=== PATIENT | female | born 1940 | race Caucasian/White ===

== ENCOUNTER 2019-01-09 20:48 | Inpatient (IN) | payer MEDICARE, MEDICAID ==
[2019-01-10 00:40] VITALS: BP 135/84
[2019-01-10] MEDS ORDERED: Magnesium Hydroxide (MOM) 30 mL UDC PO PRN (00:47)
[2019-01-10] MEDS: Enoxaparin 40 mg/0.4 mL 0.4mL Syr SUBQ SCH (09:50)
[2019-01-10] MEDS: Aspirin 81mg Chewable Tab PO SCH (09:51)
--- NOTE | 2019-01-10 19:12 | History & Physical ---
ADMIT DATE: 01/10/2019 HISTORY OF PRESENT ILLNESS: The patient was exhibiting some behavioral disturbance. She was sent to [facility] for medical clearance and was found to have urinary tract infection. She was kept there for further antibiotics and treatment and once cleared has now been sent for further psychiatric evaluation. The patient is sitting in a chair. She is drowsy, but able to move and reposition herself. The patient is a poor historian. History is taken from records. PAST MEDICAL HISTORY: The patient has history of dementia, arthritis and hypertension. The patient recently finished a course of antibiotics for urinary tract infection. The patient also had an elevation in troponin, was seen by Cardiology consult in the hospital for demand ischemia. MEDICATIONS: As per reconciliation. ALLERGIES: No known drug allergies. SOCIAL HISTORY: No known tobacco, alcohol or illicit drug use. FAMILY HISTORY: Noncontributory. REVIEW OF SYSTEMS: IMMUNOLOGIC: No recurrent infection. CARDIOVASCULAR: The patient has hypertension and possibly coronary artery disease. GASTROINTESTINAL: No nausea, vomiting or diarrhea. ENDOCRINE: No diabetes or thyroid disorder. NEUROLOGIC: No seizure or stroke. HEMATOLOGIC: No bleeding or clotting disorder. PHYSICAL EXAMINATION: GENERAL: The patient is resting comfortably in no acute distress. VITAL SIGNS: Temperature 98.2, pulse 87, respirations 18, blood pressure 132/54. HEENT: Pupils equally round, anicteric sclerae. NECK: Supple, no JVD, mass or bruit. LUNGS: Clear to auscultation. CARDIOVASCULAR: S1, S2 regular rate and rhythm. ABDOMEN: Soft, nontender, positive bowel sounds. EXTREMITIES: No clubbing, cyanosis or edema. ASSESSMENT: 1. Dementia. 2. Psychosis. 3. Hypertension. 4. Recent urinary tract infection. PLAN: Admit to a Psychiatric Unit. The patient will continue previous medications. We will monitor the patient's labs and urine for further evidence of infection. JOB# [id number]
[2019-01-10] MEDS ORDERED: Enoxaparin 40 mg/0.4 mL 0.4mL Syr SUBQ SCH (21:00)
--- NOTE | 2019-01-11 04:35 | Psychiatric Evaluation ---
DATE OF SERVICE: PSYCHIATRIC INITIAL EVALUATION AND MENTAL STATUS EXAMINATION AGE: 78. SEX: Female. PHYSICIAN: Dr. Bae. CHIEF COMPLAINT: Agitation and aggressive behavior. HISTORY OF PRESENT ILLNESS: The patient is an 78-year-old female who was transferred from [facility] to [facility] because of possible urinary tract infection and also increased agitation and irritability. The patient was medically treated and cleared and then the patient was transferred to [facility] for further treatment. The patient is extremely irritable and agitated. The patient has difficulty following directions. She also is still in irritable and angry mood. The patient also still has severe mood swings and severe confusion. The patient is taking Seroquel and also continuing to take Haldol and Klonopin and trazodone, yet she is still severely agitated and aggressive. PAST PSYCHIATRIC HISTORY: The patient has history of dementia with psychosis. PAST MEDICAL HISTORY: As per Dr. Caldwell. SOCIAL HISTORY: The patient lives in [facility]. No known alcohol or drug use. ALLERGIES: No known allergies. MENTAL STATUS EXAMINATION: The patient appears her stated age. Irritable mood. Anxious. Suspicious and paranoid. Thought processes are circumstantial and tangential with flight of ideas and difficulty expressing herself or her feelings. The patient is forgetful and impaired immediate, recent and remote memories. Poor insight and poor judgment. ASSESSMENT: Unspecified psychosis. TREATMENT PLAN: Continue to monitor her behavior and condition closely. Also, we will increase Seroquel to 37.5 every day at that time. Also, continue adjusting psychotropic medications and work on behavioral modification. ESTIMATED LENGTH OF STAY: 5-7 days. PATIENT'S STRENGTHS AND WEAKNESSES: The patient's strength is not clear at this time except that she seems to be in relatively fair health. Weaknesses are her ineffective coping and poor judgment and poor impulse control. [facility]# [id number]
[2019-01-11] MEDS: Aspirin 81mg Chewable Tab PO SCH (08:58)
[2019-01-11] MEDS: Enoxaparin 40 mg/0.4 mL 0.4mL Syr SUBQ SCH (08:59)
--- NOTE | 2019-01-11 15:31 | General Progress Note ---
Subjective - Review of Systems Service Date: 01/11/19 Subjective: resting comfortably no distress Objective - Physical Exam Vitals and I&O: Vital Signs Temp 97.7 F 01/11/19 14:56 Pulse 107 01/11/19 14:56 Resp 19 01/11/19 14:56 BP 134/96 01/11/19 14:56 Pulse Ox 95 01/11/19 14:56 Intake & Output 01/10/19 01/11/19 01/11/19 18:59 06:59 18:59 Intake Total 240 240 Balance 240 240 Intake: Oral 240 240 Other: # Voids 1 2 # Bowel Movements 0 0 Active Medications: Current Medications Acetaminophen (Tylenol) 650 mg PO Q4HR PRN PRN Reason: Mild Pain / Temp above 100 Stop: 03/11/19 00:46 Amlodipine Besylate (Norvasc) 10 mg PO DAILY [facility] Stop: 03/11/19 08:59 Last Admin: 01/11/19 08:58 Dose: 10 mg Aspirin (Aspirin Chewable) 81 mg PO DAILY [facility] Stop: 03/11/19 08:59 Last Admin: 01/11/19 08:58 Dose: 81 mg Clonazepam (Klonopin) 0.5 mg PO BID [facility]; Protocol Stop: 03/11/19 08:59 Last Admin: 01/11/19 08:59 Dose: 0.5 mg Clonazepam (Klonopin) 1 mg PO HS [facility]; Protocol Stop: 03/11/19 20:59 Last Admin: 01/10/19 20:30 Dose: 1 mg Diphenhydramine HCl (Benadryl) 25 mg PO Q6H PRN PRN Reason: itchy Stop: 03/11/19 02:22 Enoxaparin Sodium (Lovenox) 40 mg SUBQ DAILY [facility] Stop: 03/11/19 08:59 Last Admin: 01/11/19 08:59 Dose: 40 mg Haloperidol (Haldol) 5 mg PO BID [facility]; Protocol Stop: 03/11/19 08:59 Last Admin: 01/11/19 08:59 Dose: 5 mg Haloperidol (Haldol) 5 mg PO HS [facility]; Protocol Last Admin: 01/10/19 20:31 Dose: 5 mg Haloperidol (Haldol) 5 mg PO Q6H PRN; Protocol PRN Reason: Agitation Stop: 03/11/19 01:15 Lorazepam (Ativan) 0.5 mg PO Q6HR PRN; Protocol PRN Reason: Agitation Stop: 02/09/19 00:46 Magnesium Hydroxide (Milk Of Magnesia) 30 ml PO HS PRN PRN Reason: Constipation Quetiapine Fumarate (Seroquel) 37.5 mg PO HS [facility]; Protocol Stop: 03/11/19 20:59 Last Admin: 01/10/19 20:30 Dose: 37.5 mg Trazodone HCl (Desyrel) 50 mg PO HS [facility]; Protocol Stop: 03/11/19 20:59 Last Admin: 01/10/19 20:30 Dose: 50 mg General: Alert, No acute distress HEENT: Atraumatic, PERRLA Neck: Supple, JVD, Thyromegaly Cardiovascular: Regular rate, Normal S1, Normal S2 Lungs: Clear to auscultation Abdomen: Bowel sounds, Soft Assessment/Plan - Assessment Assessment: psychosis dementia HTN - Plan Plan: continue current treatment
--- NOTE | 2019-01-11 20:27 | Progress Notes ---
DATE: SUBJECTIVE: Chart was reviewed and the patient interviewed. Also discussed the patient's condition with the staff and reviewed records and labs. The patient continued to be in anxious and in irritable mood. The patient also is still having severe mood swings and severe anxiety. The patient also is restless and she still needs lots of tension and lots of concentration. Otherwise, the patient is compliant with taking her medications and slightly easier to redirect her. ASSESSMENT: The patient is still confused and is still agitated. TREATMENT PLAN: Continue to monitor her behavior and her condition closely. Also, continue adjusting psychotropic medications and work on behavioral modification and her irritability. JOB# [id number]
[2019-01-12] MEDS: Enoxaparin 40 mg/0.4 mL 0.4mL Syr SUBQ SCH (10:00)
[2019-01-12] MEDS: Aspirin 81mg Chewable Tab PO SCH (10:00)
--- NOTE | 2019-01-12 15:58 | General Progress Note ---
Subjective - Review of Systems Service Date: 01/12/19 Subjective: resting comfortably no distress Objective - Physical Exam Vitals and I&O: Vital Signs Temp 98 F 01/12/19 06:20 Pulse 94 01/12/19 10:00 Resp 20 01/12/19 06:20 BP 140/57 01/12/19 10:00 Pulse Ox 97 01/12/19 06:20 Intake & Output 01/11/19 01/12/19 01/12/19 18:59 06:59 18:59 Intake Total 850 360 Output Total 2 Balance 850 358 Intake: Oral 850 360 Output: Urine/Stool Mix 2 Other: # Voids 4 1 # Bowel Movements 2 1 Active Medications: Current Medications Acetaminophen (Tylenol) 650 mg PO Q4HR PRN PRN Reason: Mild Pain / Temp above 100 Stop: 03/11/19 00:46 Amlodipine Besylate (Norvasc) 10 mg PO DAILY [facility] Stop: 03/11/19 08:59 Last Admin: 01/12/19 10:00 Dose: 10 mg Aspirin (Aspirin Chewable) 81 mg PO DAILY [facility] Stop: 03/11/19 08:59 Last Admin: 01/12/19 10:00 Dose: 81 mg Clonazepam (Klonopin) 0.5 mg PO BID [facility]; Protocol Stop: 03/11/19 08:59 Last Admin: 01/12/19 10:00 Dose: 0.5 mg Clonazepam (Klonopin) 1 mg PO HS [facility]; Protocol Stop: 03/11/19 20:59 Last Admin: 01/11/19 21:10 Dose: 1 mg Diphenhydramine HCl (Benadryl) 25 mg PO Q6H PRN PRN Reason: itchy Stop: 03/11/19 02:22 Enoxaparin Sodium (Lovenox) 40 mg SUBQ DAILY [facility] Stop: 03/11/19 08:59 Last Admin: 01/12/19 10:00 Dose: 40 mg Haloperidol (Haldol) 5 mg PO BID [facility]; Protocol Stop: 03/11/19 08:59 Last Admin: 01/12/19 10:00 Dose: 5 mg Haloperidol (Haldol) 5 mg PO HS [facility]; Protocol Last Admin: 01/11/19 21:11 Dose: 5 mg Haloperidol (Haldol) 5 mg PO Q6H PRN; Protocol PRN Reason: Agitation Stop: 03/11/19 01:15 Lorazepam (Ativan) 0.5 mg PO Q6HR PRN; Protocol PRN Reason: Agitation Stop: 02/09/19 00:46 Magnesium Hydroxide (Milk Of Magnesia) 30 ml PO HS PRN PRN Reason: Constipation Quetiapine Fumarate (Seroquel) 37.5 mg PO HS [facility]; Protocol Stop: 03/11/19 20:59 Last Admin: 01/11/19 21:11 Dose: 37.5 mg Trazodone HCl (Desyrel) 50 mg PO HS [facility]; Protocol Stop: 03/11/19 20:59 Last Admin: 01/11/19 21:12 Dose: 50 mg General: Alert, No acute distress HEENT: Atraumatic, PERRLA Neck: Supple, JVD, Thyromegaly Cardiovascular: Regular rate, Normal S1, Normal S2 Lungs: Clear to auscultation Abdomen: Bowel sounds, Soft Assessment/Plan - Assessment Assessment: psychosis dementia HTN - Plan Plan: continue current treatment d/w staff regarding UA
[2019-01-13] MEDS: Enoxaparin 40 mg/0.4 mL 0.4mL Syr SUBQ SCH (09:36)
[2019-01-13] MEDS: Aspirin 81mg Chewable Tab PO SCH (09:36)
--- NOTE | 2019-01-13 18:03 | Internal Medicine Prog Note ---
Internal Medicine Subjective - Subjective Service Date: 01/13/19 Patient seen and examined:: with staff (she is doing well) Patient is:: awake, verbal, in bed, talking, confused Per staff patient has:: no adverse event Internal Medicine Objective - Physical Exam Vitals and I&O: Vital Signs Temp 96.4 F 01/13/19 14:50 Pulse 95 01/13/19 14:50 Resp 18 01/13/19 14:50 BP 140/59 01/13/19 14:50 Pulse Ox 93 01/13/19 14:50 Intake & Output 01/12/19 01/13/19 01/13/19 18:59 06:59 18:59 Intake Total 480 480 Output Total 1 Balance 480 479 Intake: Oral 360 480 Other 120 Output: Urine/Stool Mix 1 Other: # Voids 3 1 # Bowel Movements 1 0 Active Medications: Current Medications Acetaminophen (Tylenol) 650 mg PO Q4HR PRN PRN Reason: Mild Pain / Temp above 100 Stop: 03/11/19 00:46 Amlodipine Besylate (Norvasc) 10 mg PO DAILY [facility] Stop: 03/11/19 08:59 Last Admin: 01/13/19 09:36 Dose: Not Given Aspirin (Aspirin Chewable) 81 mg PO DAILY [facility] Stop: 03/11/19 08:59 Last Admin: 01/13/19 09:36 Dose: Not Given Clonazepam (Klonopin) 0.5 mg PO BID [facility]; Protocol Stop: 03/11/19 08:59 Last Admin: 01/13/19 17:46 Dose: Not Given Clonazepam (Klonopin) 1 mg PO HS [facility]; Protocol Stop: 03/11/19 20:59 Last Admin: 01/12/19 21:18 Dose: 1 mg Diphenhydramine HCl (Benadryl) 25 mg PO Q6H PRN PRN Reason: itchy Stop: 03/11/19 02:22 Enoxaparin Sodium (Lovenox) 40 mg SUBQ DAILY [facility] Stop: 03/11/19 08:59 Last Admin: 01/13/19 09:36 Dose: Not Given Haloperidol (Haldol) 5 mg PO BID [facility]; Protocol Stop: 03/11/19 08:59 Last Admin: 01/13/19 17:46 Dose: Not Given Haloperidol (Haldol) 5 mg PO HS [facility]; Protocol Last Admin: 01/12/19 21:18 Dose: 5 mg Haloperidol (Haldol) 5 mg PO Q6H PRN; Protocol PRN Reason: Agitation Stop: 03/11/19 01:15 Lorazepam (Ativan) 0.5 mg PO Q6HR PRN; Protocol PRN Reason: Agitation Stop: 02/09/19 00:46 Magnesium Hydroxide (Milk Of Magnesia) 30 ml PO HS PRN PRN Reason: Constipation Quetiapine Fumarate (Seroquel) 37.5 mg PO HS [facility]; Protocol Stop: 03/11/19 20:59 Last Admin: 01/12/19 21:18 Dose: 37.5 mg Trazodone HCl (Desyrel) 50 mg PO HS [facility]; Protocol Stop: 03/11/19 20:59 Last Admin: 01/12/19 21:19 Dose: 50 mg General: demented HEENT: NC/AT, PERRLA, EOMI, anicteric sclerae, throat clear Neck: Supple, No JVD, No thyromegaly, +2 carotid pulse wo bruit, No LAD Lungs: CTAB Cardiovascular: Normal S1, Normal S2, without murmur Abdomen: non-tender, non-distended Extremities: clear Neurological: no change Internal Medicine Assmt/Plan - Assessment Assessment: 1.HTN 2.DJD. 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 4.PSYCHOSIS - Plan Plan: CONTINUE ON CURRENT MEDICATION AND DIET Nutritional Asmnt/Malnutr-PDOC - Dietary Evaluation Malnutrition Findings (Please click <Entered> for more info): Nutritional Asmnt/Malnutrition Start: 01/13/19 13: 09 Text: Status: Complete Freq: Protocol: Document 01/13/19 13:09 BRENDAN (Rec: 01/13/19 13:12 BRENDAN [email or web address]) Nutritional Asmnt/Malnutrition Patient General Information Nutritional Screening Moderate Risk Diagnosis Psychosis Pertinent Medical Hx/Surgical Hx HTN, Dementia, Arthritis Subjective Information Pt is a 78-year-old female admitted on 01/09 d/t behavioral disturbance following a Dx UTI in [facility]. Pt refused Breakfast and Lunch and only ate 25% dinner day after admittance (01/10), Pt is eating 46% of meals x2 days Per Meal/Nutrition Activity Record. Dietary is currently providing an estimated 2900 kcals and 132 gm Pro, per Pt PO intake this is providing an estimated 1330 kcals and 60gm Pro to meet 80% kcal and 90% Pro needs- adequate. Spoke with Nurse Larry as he was concerned about pt poor PO intake. I let him know the pt is meeting estimated nutritional needs adequately, however if pt would like an Ensure between meals to ask for one from dietary. He stated pt doesnt seem to enjoy the Ensure, but he will offer if pt refuses snacks. Pt is very confused and unable to have a coherent conversation. Anthropometrics HT: 55 WT: 145 LB (65.91 kg) BMI: 24.18 (Normal) GI/ Skin Integrity GI: WNL, Soft, Flat, Non- tender BM: 01/12 x1 I/O: 960/1 (+959) Skin: WNL, fragile, Intact, Dryness Amandeep: 17 Current Diet Order/ Nutrition Support Ground Pertinent Medications MOM (PRN) Pertinent Labs 01/09: K 3.4, BUN/Cr 7/0.82, Glucose 114 Nutritional Hx/Data Height 1.65 m Height (Calculated Centimeters) 165.1 Current Weight (lbs) 65.771 kg Weight (Calculated Kilograms) 65.8 Weight (Calculated Grams) 74197.9 [place] Body Weight 120 LB (54.55 kg) % [place] Body Weight 121 Body Mass Index (BMI) 24.1 Weight Status Approriate GI Symptoms GI Symptoms None Last BM 01/12 x1 Skin Integrity/Comment: Skin: WNL, fragile, Intact, Dryness Amandeep: 17 Current %PO Poor (25-49%) Estimated Nutritional Goals BEE in Kcals: Using Current wt Calories/Kcals/Kg 25-30 Kcals Calculated 2978-9150 Protein: Using Current wt Protein g/k.0-1.2 Protein Calculated 66-80 Fluid: ml 8740-2574 ml (25-30 ml/kg) Nutritional Problem No current Nutrition Prob Problem No nutrition diagnosis at this time. Etiology N/A Signs/Symptoms: N/A Malnutrition Related to Morbid Obesity Malnutrition related to morbid obesity No Intervention/Recommendation Comments Continue Ground diet as tolerated. Expected Outcomes/Goals Expected Outcomes/Goals 1. PO intake to continue to meet >75% of nutritional needs . 2. Monitor PO intake, wt, nutrition related labs, and skin integrity. 3. F/U as low risk in 7-10 days, 01/20-01/23
[2019-01-13] MEDS ORDERED: Potassium Chloride 20 mEq ER Tab PO ONE (22:00)
[2019-01-13] MEDS ORDERED: Potassium Chloride Elixir 20 mEq /15 mL UDC PO ONE (22:04)
--- NOTE | 2019-01-14 04:35 | Progress Notes ---
DATE: PSYCHIATRIC PROGRESS NOTE SUBJECTIVE: Chart reviewed and patient interviewed. Also discussed patient's condition with the staff and reviewed records and labs. The patient is still anxious and is still in irritable mood. The patient also is still suspicious and paranoid. She also is still easily agitated and easily irritable, although she is slightly better since started on Seroquel and easier to redirect her. She is still confused and unable to carry on any coherent conversation. ASSESSMENT: The patient is still confused and considered to be gravely disabled. TREATMENT PLAN: Continue to monitor her behavior and her condition closely. Also, continue Seroquel in a dose of 37.5 mg at bedtime and Haldol 5 mg twice a day and at bedtime as well as Klonopin 0.5 mg twice a day and 1 mg at bedtime as well as trazodone 50 mg at bedtime and continue to work on her irritability and her agitation and continue to follow up. JOB# [id number]
[2019-01-14] MEDS: Aspirin 81mg Chewable Tab PO SCH (08:44)
[2019-01-14] MEDS: Enoxaparin 40 mg/0.4 mL 0.4mL Syr SUBQ SCH (08:44)
--- NOTE | 2019-01-14 09:07 | Progress Notes ---
DATE: 01/14/2019 SUBJECTIVE: Chart was reviewed and the patient interviewed. Also discussed the patient's condition with the staff and reviewed records and labs. The patient is still confused and is still restless and anxious. The patient also is still easily agitated and easily irritable and is still having difficulty following directions and having difficulty with her mood. She also is still having severe mood swings. Otherwise, the patient is compliant with her medications with no side effects of medications. The patient refused to take her medications in the morning, but she did take it at night. ASSESSMENT: The patient is still agitated and confused. TREATMENT PLAN: We will decrease Haldol to 2 mg twice a day and 5 mg at bedtime and we will increase Seroquel to 50 mg at bedtime and we will continue to follow up her behavior and condition closely. [facility]# [id number]
--- NOTE | 2019-01-14 11:47 | Internal Medicine Prog Note ---
Internal Medicine Subjective - Subjective Service Date: 01/14/19 Patient seen and examined:: without staff (SHE IS CONFUSED,LESS AGITATED) Patient is:: awake, verbal, in bed, talking, confused Per staff patient has:: no adverse event Internal Medicine Objective - Physical Exam Vitals and I&O: Vital Signs Temp 97.9 F 01/14/19 06:00 Pulse 70 01/14/19 08:43 Resp 20 01/14/19 06:00 BP 146/98 01/14/19 08:43 Pulse Ox 92 01/14/19 06:00 Intake & Output 01/13/19 01/14/19 01/14/19 18:59 06:59 18:59 Intake Total 850 240 Balance 850 240 Intake: Oral 850 240 Other: # Voids 4 # Bowel Movements 1 Active Medications: Current Medications Acetaminophen (Tylenol) 650 mg PO Q4HR PRN PRN Reason: Mild Pain / Temp above 100 Stop: 03/11/19 00:46 Amlodipine Besylate (Norvasc) 10 mg PO DAILY [facility] Stop: 03/11/19 08:59 Last Admin: 01/14/19 08:43 Dose: 10 mg Aspirin (Aspirin Chewable) 81 mg PO DAILY [facility] Stop: 03/11/19 08:59 Last Admin: 01/14/19 08:44 Dose: 81 mg Clonazepam (Klonopin) 0.5 mg PO BID [facility]; Protocol Stop: 03/11/19 08:59 Last Admin: 01/14/19 08:43 Dose: 0.5 mg Clonazepam (Klonopin) 1 mg PO HS [facility]; Protocol Stop: 03/11/19 20:59 Last Admin: 01/13/19 21:15 Dose: 1 mg Diphenhydramine HCl (Benadryl) 25 mg PO Q6H PRN PRN Reason: itchy Stop: 03/11/19 02:22 Enoxaparin Sodium (Lovenox) 40 mg SUBQ DAILY [facility] Stop: 03/11/19 08:59 Last Admin: 01/14/19 08:44 Dose: 40 mg Haloperidol (Haldol) 5 mg PO HS [facility]; Protocol Last Admin: 01/13/19 21:15 Dose: 5 mg Haloperidol (Haldol) 5 mg PO Q6H PRN; Protocol PRN Reason: Agitation Stop: 03/11/19 01:15 Haloperidol (Haldol) 2 mg PO BID [facility]; Protocol Stop: 03/15/19 08:59 Last Admin: 01/14/19 08:43 Dose: 2 mg Lorazepam (Ativan) 0.5 mg PO Q6HR PRN; Protocol PRN Reason: Agitation Stop: 02/09/19 00:46 Magnesium Hydroxide (Milk Of Magnesia) 30 ml PO HS PRN PRN Reason: Constipation Quetiapine Fumarate (Seroquel) 50 mg PO HS [facility]; Protocol Stop: 03/15/19 20:59 Trazodone HCl (Desyrel) 50 mg PO HS [facility]; Protocol Stop: 03/11/19 20:59 Last Admin: 01/13/19 21:16 Dose: 50 mg General: demented HEENT: NC/AT, PERRLA, EOMI, anicteric sclerae, throat clear Neck: Supple, No JVD, No thyromegaly, +2 carotid pulse wo bruit, No LAD Lungs: CTAB Cardiovascular: Normal S1, Normal S2, without murmur Abdomen: non-tender, non-distended Extremities: clear Neurological: no change Internal Medicine Assmt/Plan - Assessment Assessment: 1.HTN 2.DJD. 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 4.PSYCHOSIS - Plan Plan: CONTINUE ON CURRENT MEDICATION AND DIET Nutritional Asmnt/Malnutr-PDOC - Dietary Evaluation Malnutrition Findings (Please click <Entered> for more info): Nutritional Asmnt/Malnutrition Start: 01/13/19 13: 09 Text: Status: Complete Freq: Protocol: Document 01/13/19 13:09 BRENDAN (Rec: 01/13/19 13:12 BRENDAN [email or web address]) Nutritional Asmnt/Malnutrition Patient General Information Nutritional Screening Moderate Risk Diagnosis Psychosis Pertinent Medical Hx/Surgical Hx HTN, Dementia, Arthritis Subjective Information Pt is a 78-year-old female admitted on 01/09 d/t behavioral disturbance following a Dx UTI in [facility]. Pt refused Breakfast and Lunch and only ate 25% dinner day after admittance (01/10), Pt is eating 46% of meals x2 days Per Meal/Nutrition Activity Record. Dietary is currently providing an estimated 2900 kcals and 132 gm Pro, per Pt PO intake this is providing an estimated 1330 kcals and 60gm Pro to meet 80% kcal and 90% Pro needs- adequate. Spoke with Nurse Escalanterey as he was concerned about pt poor PO intake. I let him know the pt is meeting estimated nutritional needs adequately, however if pt would like an Ensure between meals to ask for one from dietary. He stated pt doesnt seem to enjoy the Ensure, but he will offer if pt refuses snacks. Pt is very confused and unable to have a coherent conversation. Anthropometrics HT: 55 WT: 145 LB (65.91 kg) BMI: 24.18 (Normal) GI/ Skin Integrity GI: WNL, Soft, Flat, Non- tender BM: 01/12 x1 I/O: 960/1 (+959) Skin: WNL, fragile, Intact, Dryness Amandeep: 17 Current Diet Order/ Nutrition Support Ground Pertinent Medications MOM (PRN) Pertinent Labs 01/09: K 3.4, BUN/Cr 7/0.82, Glucose 114 Nutritional Hx/Data Height 1.65 m Height (Calculated Centimeters) 165.1 Current Weight (lbs) 65.771 kg Weight (Calculated Kilograms) 65.8 Weight (Calculated Grams) 63810.9 [place] Body Weight 120 LB (54.55 kg) % [place] Body Weight 121 Body Mass Index (BMI) 24.1 Weight Status Approriate GI Symptoms GI Symptoms None Last BM 01/12 x1 Skin Integrity/Comment: Skin: WNL, fragile, Intact, Dryness Amandeep: 17 Current %PO Poor (25-49%) Estimated Nutritional Goals BEE in Kcals: Using Current wt Calories/Kcals/Kg 25-30 Kcals Calculated 0920-7500 Protein: Using Current wt Protein g/k.0-1.2 Protein Calculated 66-80 Fluid: ml 4994-4666 ml (25-30 ml/kg) Nutritional Problem No current Nutrition Prob Problem No nutrition diagnosis at this time. Etiology N/A Signs/Symptoms: N/A Malnutrition Related to Morbid Obesity Malnutrition related to morbid obesity No Intervention/Recommendation Comments Continue Ground diet as tolerated. Expected Outcomes/Goals Expected Outcomes/Goals 1. PO intake to continue to meet >75% of nutritional needs . 2. Monitor PO intake, wt, nutrition related labs, and skin integrity. 3. F/U as low risk in 7-10 days, 01/20-01/23
--- NOTE | 2019-01-15 07:37 | Progress Notes ---
DATE: SUBJECTIVE: Chart was reviewed and the patient interviewed. Also discussed the patient's condition with the staff and reviewed records and labs. The patient is still anxious and still has episodes of irritability and anger. The patient also is interacting minimally with others and stays on her bed most of the time. Otherwise, the patient is compliant with taking her medications, with no side effects of medications. ASSESSMENT: The patient is still confused and agitated. TREATMENT PLAN: Continue to monitor her behavior and her condition closely. Also, continue current psychotropic medications and work on behavioral modification as well as adjusting medications. JOB# [id number]
[2019-01-15] MEDS: Aspirin 81mg Chewable Tab PO SCH (08:36)
[2019-01-15] MEDS: Enoxaparin 40 mg/0.4 mL 0.4mL Syr SUBQ SCH (08:36)
--- NOTE | 2019-01-15 20:35 | Internal Medicine Prog Note ---
Internal Medicine Subjective - Subjective Service Date: 01/15/19 Patient seen and examined:: without staff (SHE IS DOING WELL) Patient is:: awake, verbal, in bed, talking, confused Per staff patient has:: no adverse event Internal Medicine Objective - Physical Exam Vitals and I&O: Vital Signs Temp 97.0 F 01/15/19 14:00 Pulse 81 01/15/19 14:00 Resp 18 01/15/19 14:00 BP 123/71 01/15/19 14:00 Pulse Ox 96 01/15/19 14:00 Intake & Output 01/15/19 01/15/19 01/16/19 06:59 18:59 06:59 Intake Total 120 800 Balance 120 800 Intake: Oral 120 800 Other: # Voids 2 3 # Bowel Movements 0 0 Stool Characteristics Soft Brown Active Medications: Current Medications Acetaminophen (Tylenol) 650 mg PO Q4HR PRN PRN Reason: Mild Pain / Temp above 100 Stop: 03/11/19 00:46 Amlodipine Besylate (Norvasc) 10 mg PO DAILY [facility] Stop: 03/11/19 08:59 Last Admin: 01/15/19 08:35 Dose: 10 mg Aspirin (Aspirin Chewable) 81 mg PO DAILY [facility] Stop: 03/11/19 08:59 Last Admin: 01/15/19 08:36 Dose: 81 mg Clonazepam (Klonopin) 0.5 mg PO BID [facility]; Protocol Stop: 03/11/19 08:59 Last Admin: 01/15/19 17:26 Dose: 0.5 mg Clonazepam (Klonopin) 1 mg PO HS [facility]; Protocol Stop: 03/11/19 20:59 Last Admin: 01/15/19 20:22 Dose: 1 mg Diphenhydramine HCl (Benadryl) 25 mg PO Q6H PRN PRN Reason: itchy Stop: 03/11/19 02:22 Enoxaparin Sodium (Lovenox) 40 mg SUBQ DAILY [facility] Stop: 03/11/19 08:59 Last Admin: 01/15/19 08:36 Dose: 40 mg Haloperidol (Haldol) 5 mg PO HS [facility]; Protocol Last Admin: 01/15/19 20:22 Dose: 5 mg Haloperidol (Haldol) 5 mg PO Q6H PRN; Protocol PRN Reason: Agitation Stop: 03/11/19 01:15 Haloperidol (Haldol) 2 mg PO BID [facility]; Protocol Stop: 03/15/19 08:59 Last Admin: 01/15/19 17:26 Dose: 2 mg Lorazepam (Ativan) 0.5 mg PO Q6HR PRN; Protocol PRN Reason: Agitation Stop: 02/09/19 00:46 Magnesium Hydroxide (Milk Of Magnesia) 30 ml PO HS PRN PRN Reason: Constipation Quetiapine Fumarate (Seroquel) 50 mg PO HS [facility]; Protocol Stop: 03/15/19 20:59 Last Admin: 01/15/19 20:23 Dose: 50 mg Trazodone HCl (Desyrel) 50 mg PO HS [facility]; Protocol Stop: 03/11/19 20:59 Last Admin: 01/15/19 20:23 Dose: 50 mg General: demented HEENT: NC/AT, PERRLA, EOMI, anicteric sclerae, throat clear Neck: Supple, No JVD, No thyromegaly, +2 carotid pulse wo bruit, No LAD Lungs: CTAB Cardiovascular: Normal S1, Normal S2, without murmur Abdomen: non-tender, non-distended Extremities: clear Neurological: no change Internal Medicine Assmt/Plan - Assessment Assessment: 1.HTN 2.DJD. 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 4.PSYCHOSIS - Plan Plan: CONTINUE ON CURRENT MEDICATION AND DIET Nutritional Asmnt/Malnutr-PDOC - Dietary Evaluation Malnutrition Findings (Please click <Entered> for more info): Nutritional Asmnt/Malnutrition Start: 01/13/19 13: 09 Text: Status: Complete Freq: Protocol: Document 01/13/19 13:09 BRENDAN (Rec: 01/13/19 13:12 BRENDAN [email or web address]) Nutritional Asmnt/Malnutrition Patient General Information Nutritional Screening Moderate Risk Diagnosis Psychosis Pertinent Medical Hx/Surgical Hx HTN, Dementia, Arthritis Subjective Information Pt is a 78-year-old female admitted on 01/09 d/t behavioral disturbance following a Dx UTI in [facility]. Pt refused Breakfast and Lunch and only ate 25% dinner day after admittance (01/10), Pt is eating 46% of meals x2 days Per Meal/Nutrition Activity Record. Dietary is currently providing an estimated 2900 kcals and 132 gm Pro, per Pt PO intake this is providing an estimated 1330 kcals and 60gm Pro to meet 80% kcal and 90% Pro needs- adequate. Spoke with Nurse Larry as he was concerned about pt poor PO intake. I let him know the pt is meeting estimated nutritional needs adequately, however if pt would like an Ensure between meals to ask for one from dietary. He stated pt doesnt seem to enjoy the Ensure, but he will offer if pt refuses snacks. Pt is very confused and unable to have a coherent conversation. Anthropometrics HT: 55 WT: 145 LB (65.91 kg) BMI: 24.18 (Normal) GI/ Skin Integrity GI: WNL, Soft, Flat, Non- tender BM: 01/12 x1 I/O: 960/1 (+959) Skin: WNL, fragile, Intact, Dryness Amandeep: 17 Current Diet Order/ Nutrition Support Ground Pertinent Medications MOM (PRN) Pertinent Labs 01/09: K 3.4, BUN/Cr 7/0.82, Glucose 114 Nutritional Hx/Data Height 1.65 m Height (Calculated Centimeters) 165.1 Current Weight (lbs) 65.771 kg Weight (Calculated Kilograms) 65.8 Weight (Calculated Grams) 39449.9 [place] Body Weight 120 LB (54.55 kg) % [place] Body Weight 121 Body Mass Index (BMI) 24.1 Weight Status Approriate GI Symptoms GI Symptoms None Last BM 01/12 x1 Skin Integrity/Comment: Skin: WNL, fragile, Intact, Dryness Amandeep: 17 Current %PO Poor (25-49%) Estimated Nutritional Goals BEE in Kcals: Using Current wt Calories/Kcals/Kg 25-30 Kcals Calculated 3360-3640 Protein: Using Current wt Protein g/k.0-1.2 Protein Calculated 66-80 Fluid: ml 2079-5619 ml (25-30 ml/kg) Nutritional Problem No current Nutrition Prob Problem No nutrition diagnosis at this time. Etiology N/A Signs/Symptoms: N/A Malnutrition Related to Morbid Obesity Malnutrition related to morbid obesity No Intervention/Recommendation Comments Continue Ground diet as tolerated. Expected Outcomes/Goals Expected Outcomes/Goals 1. PO intake to continue to meet >75% of nutritional needs . 2. Monitor PO intake, wt, nutrition related labs, and skin integrity. 3. F/U as low risk in 7-10 days, 01/20-01/23
[2019-01-16] MEDS: Enoxaparin 40 mg/0.4 mL 0.4mL Syr SUBQ SCH (08:42)
[2019-01-16] MEDS: Aspirin 81mg Chewable Tab PO SCH (08:43)
--- NOTE | 2019-01-16 09:20 | Progress Notes ---
DATE: SUBJECTIVE: Chart reviewed and the patient interviewed. Also, discussed the patient's condition with the staff and reviewed records and labs. The patient still has episodes of outbursts and agitation, but seems to be slightly less than before. The patient also is still confused, but she is eating and drinking slightly more than before. She also still needs close monitoring and still gets restless and agitated, especially during helping her with her ADLs. Otherwise, the patient is cooperative and is compliant with taking her medications with no side effects of medications. ASSESSMENT: The patient is still agitated, but seems to be less. TREATMENT PLAN: Continue Seroquel 50 mg at bedtime and continue Haldol 2 mg twice a day and 5 mg at bedtime. Also, continue working on behavior and we will continue to follow up closely. JOB# [id number]
--- NOTE | 2019-01-16 17:30 | Internal Medicine Prog Note ---
Internal Medicine Subjective - Subjective Service Date: 01/16/19 Patient seen and examined:: without staff (she feels better) Patient is:: awake, verbal, in bed, talking, confused Per staff patient has:: no adverse event Internal Medicine Objective - Physical Exam Vitals and I&O: Vital Signs Temp 98.3 F 01/16/19 14:26 Pulse 95 01/16/19 14:26 Resp 18 01/16/19 14:26 BP 123/72 01/16/19 14:26 Pulse Ox 94 01/16/19 14:26 Intake & Output 01/15/19 01/16/19 01/16/19 18:59 06:59 18:59 Intake Total 800 120 Balance 800 120 Intake: Oral 800 120 Other: # Voids 3 1 # Bowel Movements 0 0 Stool Characteristics Soft Brown Active Medications: Current Medications Acetaminophen (Tylenol) 650 mg PO Q4HR PRN PRN Reason: Mild Pain / Temp above 100 Stop: 03/11/19 00:46 Amlodipine Besylate (Norvasc) 10 mg PO DAILY [facility] Stop: 03/11/19 08:59 Last Admin: 01/16/19 08:43 Dose: 10 mg Aspirin (Aspirin Chewable) 81 mg PO DAILY [facility] Stop: 03/11/19 08:59 Last Admin: 01/16/19 08:43 Dose: 81 mg Clonazepam (Klonopin) 0.5 mg PO BID [facility]; Protocol Stop: 03/11/19 08:59 Last Admin: 01/16/19 16:41 Dose: 0.5 mg Clonazepam (Klonopin) 1 mg PO HS [facility]; Protocol Stop: 03/11/19 20:59 Last Admin: 01/15/19 20:22 Dose: 1 mg Diphenhydramine HCl (Benadryl) 25 mg PO Q6H PRN PRN Reason: itchy Stop: 03/11/19 02:22 Enoxaparin Sodium (Lovenox) 40 mg SUBQ DAILY [facility] Stop: 03/11/19 08:59 Last Admin: 01/16/19 08:42 Dose: 40 mg Fluconazole (Diflucan) 100 mg PO DAILY [facility] Stop: 01/23/19 08:59 Last Admin: 01/16/19 08:43 Dose: 100 mg Haloperidol (Haldol) 5 mg PO HS [facility]; Protocol Last Admin: 01/15/19 20:22 Dose: 5 mg Haloperidol (Haldol) 5 mg PO Q6H PRN; Protocol PRN Reason: Agitation Stop: 03/11/19 01:15 Haloperidol (Haldol) 2 mg PO BID [facility]; Protocol Stop: 03/15/19 08:59 Last Admin: 01/16/19 16:41 Dose: 2 mg Lorazepam (Ativan) 0.5 mg PO Q6HR PRN; Protocol PRN Reason: Agitation Stop: 02/09/19 00:46 Magnesium Hydroxide (Milk Of Magnesia) 30 ml PO HS PRN PRN Reason: Constipation Quetiapine Fumarate (Seroquel) 50 mg PO HS [facility]; Protocol Stop: 03/15/19 20:59 Last Admin: 01/15/19 20:23 Dose: 50 mg Trazodone HCl (Desyrel) 50 mg PO HS [facility]; Protocol Stop: 03/11/19 20:59 Last Admin: 01/15/19 20:23 Dose: 50 mg General: demented HEENT: NC/AT, PERRLA, EOMI, anicteric sclerae, throat clear Neck: Supple, No JVD, No thyromegaly, +2 carotid pulse wo bruit, No LAD Lungs: CTAB Cardiovascular: Normal S1, Normal S2, without murmur Abdomen: non-tender, non-distended Extremities: clear Neurological: no change Internal Medicine Assmt/Plan - Assessment Assessment: 1.HTN 2.DJD. 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 4.PSYCHOSIS - Plan Plan: CONTINUE ON CURRENT MEDICATION AND DIET Nutritional Asmnt/Malnutr-PDOC - Dietary Evaluation Malnutrition Findings (Please click <Entered> for more info): Nutritional Asmnt/Malnutrition Start: 01/13/19 13: 09 Text: Status: Complete Freq: Protocol: Document 01/13/19 13:09 BRENDAN (Rec: 01/13/19 13:12 BRENDAN [email or web address]) Nutritional Asmnt/Malnutrition Patient General Information Nutritional Screening Moderate Risk Diagnosis Psychosis Pertinent Medical Hx/Surgical Hx HTN, Dementia, Arthritis Subjective Information Pt is a 78-year-old female admitted on 01/09 d/t behavioral disturbance following a Dx UTI in [facility]. Pt refused Breakfast and Lunch and only ate 25% dinner day after admittance (01/10), Pt is eating 46% of meals x2 days Per Meal/Nutrition Activity Record. Dietary is currently providing an estimated 2900 kcals and 132 gm Pro, per Pt PO intake this is providing an estimated 1330 kcals and 60gm Pro to meet 80% kcal and 90% Pro needs- adequate. Spoke with Nurse Larry as he was concerned about pt poor PO intake. I let him know the pt is meeting estimated nutritional needs adequately, however if pt would like an Ensure between meals to ask for one from dietary. He stated pt doesnt seem to enjoy the Ensure, but he will offer if pt refuses snacks. Pt is very confused and unable to have a coherent conversation. Anthropometrics HT: 55 WT: 145 LB (65.91 kg) BMI: 24.18 (Normal) GI/ Skin Integrity GI: WNL, Soft, Flat, Non- tender BM: 01/12 x1 I/O: 960/1 (+959) Skin: WNL, fragile, Intact, Dryness Amandeep: 17 Current Diet Order/ Nutrition Support Ground Pertinent Medications MOM (PRN) Pertinent Labs 01/09: K 3.4, BUN/Cr 7/0.82, Glucose 114 Nutritional Hx/Data Height 1.65 m Height (Calculated Centimeters) 165.1 Current Weight (lbs) 65.771 kg Weight (Calculated Kilograms) 65.8 Weight (Calculated Grams) 25630.9 [place] Body Weight 120 LB (54.55 kg) % [place] Body Weight 121 Body Mass Index (BMI) 24.1 Weight Status Approriate GI Symptoms GI Symptoms None Last BM 01/12 x1 Skin Integrity/Comment: Skin: WNL, fragile, Intact, Dryness Amandeep: 17 Current %PO Poor (25-49%) Estimated Nutritional Goals BEE in Kcals: Using Current wt Calories/Kcals/Kg 25-30 Kcals Calculated 8050-8014 Protein: Using Current wt Protein g/k.0-1.2 Protein Calculated 66-80 Fluid: ml 9347-4275 ml (25-30 ml/kg) Nutritional Problem No current Nutrition Prob Problem No nutrition diagnosis at this time. Etiology N/A Signs/Symptoms: N/A Malnutrition Related to Morbid Obesity Malnutrition related to morbid obesity No Intervention/Recommendation Comments Continue Ground diet as tolerated. Expected Outcomes/Goals Expected Outcomes/Goals 1. PO intake to continue to meet >75% of nutritional needs . 2. Monitor PO intake, wt, nutrition related labs, and skin integrity. 3. F/U as low risk in 7-10 days, 01/20-01/23
[2019-01-17] MEDS: Enoxaparin 40 mg/0.4 mL 0.4mL Syr SUBQ SCH (09:02)
[2019-01-17] MEDS: Aspirin 81mg Chewable Tab PO SCH (09:02)
--- NOTE | 2019-01-17 18:51 | Internal Medicine Prog Note ---
Internal Medicine Subjective - Subjective Service Date: 01/17/19 Patient seen and examined:: without staff (SHE IS DOING WELL) Patient is:: awake, verbal, in bed, talking, confused Per staff patient has:: no adverse event Internal Medicine Objective - Physical Exam Vitals and I&O: Vital Signs Temp 97.8 F 01/17/19 14:00 Pulse 99 01/17/19 14:00 Resp 20 01/17/19 14:00 BP 137/88 01/17/19 14:00 Pulse Ox 97 01/17/19 14:00 Intake & Output 01/16/19 01/17/19 01/17/19 18:59 06:59 18:59 Intake Total 240 1200 Balance 240 1200 Intake: Oral 240 1200 Other: # Voids 2 # Bowel Movements 0 1 Active Medications: Current Medications Acetaminophen (Tylenol) 650 mg PO Q4HR PRN PRN Reason: Mild Pain / Temp above 100 Stop: 03/11/19 00:46 Amlodipine Besylate (Norvasc) 10 mg PO DAILY [facility] Stop: 03/11/19 08:59 Last Admin: 01/17/19 09:01 Dose: 10 mg Aspirin (Aspirin Chewable) 81 mg PO DAILY [facility] Stop: 03/11/19 08:59 Last Admin: 01/17/19 09:02 Dose: 81 mg Clonazepam (Klonopin) 0.5 mg PO BID [facility]; Protocol Stop: 03/11/19 08:59 Last Admin: 01/17/19 16:34 Dose: 0.5 mg Clonazepam (Klonopin) 1 mg PO HS [facility]; Protocol Stop: 03/11/19 20:59 Last Admin: 01/16/19 21:16 Dose: 1 mg Diphenhydramine HCl (Benadryl) 25 mg PO Q6H PRN PRN Reason: itchy Stop: 03/11/19 02:22 Enoxaparin Sodium (Lovenox) 40 mg SUBQ DAILY [facility] Stop: 03/11/19 08:59 Last Admin: 01/17/19 09:02 Dose: 40 mg Fluconazole (Diflucan) 100 mg PO DAILY [facility] Stop: 01/23/19 08:59 Last Admin: 01/17/19 09:02 Dose: 100 mg Haloperidol (Haldol) 5 mg PO HS [facility]; Protocol Last Admin: 01/16/19 21:16 Dose: 5 mg Haloperidol (Haldol) 5 mg PO Q6H PRN; Protocol PRN Reason: Agitation Stop: 03/11/19 01:15 Haloperidol (Haldol) 2 mg PO BID [facility]; Protocol Stop: 03/15/19 08:59 Last Admin: 01/17/19 16:34 Dose: 2 mg Lorazepam (Ativan) 0.5 mg PO Q6HR PRN; Protocol PRN Reason: Agitation Stop: 02/09/19 00:46 Magnesium Hydroxide (Milk Of Magnesia) 30 ml PO HS PRN PRN Reason: Constipation Quetiapine Fumarate (Seroquel) 50 mg PO HS [facility]; Protocol Stop: 03/15/19 20:59 Last Admin: 01/16/19 21:16 Dose: 50 mg Trazodone HCl (Desyrel) 50 mg PO HS [facility]; Protocol Stop: 03/11/19 20:59 Last Admin: 01/16/19 21:16 Dose: 50 mg General: demented HEENT: NC/AT, PERRLA, EOMI, anicteric sclerae, throat clear Neck: Supple, No JVD, No thyromegaly, +2 carotid pulse wo bruit, No LAD Lungs: CTAB Cardiovascular: Normal S1, Normal S2, without murmur Abdomen: non-tender, non-distended Extremities: clear Neurological: no change Internal Medicine Assmt/Plan - Assessment Assessment: 1.HTN 2.DJD. 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 4.PSYCHOSIS - Plan Plan: CONTINUE ON CURRENT MEDICATION AND DIET Nutritional Asmnt/Malnutr-PDOC - Dietary Evaluation Malnutrition Findings (Please click <Entered> for more info): Nutritional Asmnt/Malnutrition Start: 01/13/19 13: 09 Text: Status: Complete Freq: Protocol: Document 01/13/19 13:09 BRENDAN (Rec: 01/13/19 13:12 BRENDAN [email or web address]) Nutritional Asmnt/Malnutrition Patient General Information Nutritional Screening Moderate Risk Diagnosis Psychosis Pertinent Medical Hx/Surgical Hx HTN, Dementia, Arthritis Subjective Information Pt is a 78-year-old female admitted on 01/09 d/t behavioral disturbance following a Dx UTI in [facility]. Pt refused Breakfast and Lunch and only ate 25% dinner day after admittance (01/10), Pt is eating 46% of meals x2 days Per Meal/Nutrition Activity Record. Dietary is currently providing an estimated 2900 kcals and 132 gm Pro, per Pt PO intake this is providing an estimated 1330 kcals and 60gm Pro to meet 80% kcal and 90% Pro needs- adequate. Spoke with Nurse Larry as he was concerned about pt poor PO intake. I let him know the pt is meeting estimated nutritional needs adequately, however if pt would like an Ensure between meals to ask for one from dietary. He stated pt doesnt seem to enjoy the Ensure, but he will offer if pt refuses snacks. Pt is very confused and unable to have a coherent conversation. Anthropometrics HT: 55 WT: 145 LB (65.91 kg) BMI: 24.18 (Normal) GI/ Skin Integrity GI: WNL, Soft, Flat, Non- tender BM: 01/12 x1 I/O: 960/1 (+959) Skin: WNL, fragile, Intact, Dryness Amandeep: 17 Current Diet Order/ Nutrition Support Ground Pertinent Medications MOM (PRN) Pertinent Labs 01/09: K 3.4, BUN/Cr 7/0.82, Glucose 114 Nutritional Hx/Data Height 1.65 m Height (Calculated Centimeters) 165.1 Current Weight (lbs) 65.771 kg Weight (Calculated Kilograms) 65.8 Weight (Calculated Grams) 45404.9 [place] Body Weight 120 LB (54.55 kg) % [place] Body Weight 121 Body Mass Index (BMI) 24.1 Weight Status Approriate GI Symptoms GI Symptoms None Last BM 01/12 x1 Skin Integrity/Comment: Skin: WNL, fragile, Intact, Dryness Amandeep: 17 Current %PO Poor (25-49%) Estimated Nutritional Goals BEE in Kcals: Using Current wt Calories/Kcals/Kg 25-30 Kcals Calculated 5479-0985 Protein: Using Current wt Protein g/k.0-1.2 Protein Calculated 66-80 Fluid: ml 0586-0427 ml (25-30 ml/kg) Nutritional Problem No current Nutrition Prob Problem No nutrition diagnosis at this time. Etiology N/A Signs/Symptoms: N/A Malnutrition Related to Morbid Obesity Malnutrition related to morbid obesity No Intervention/Recommendation Comments Continue Ground diet as tolerated. Expected Outcomes/Goals Expected Outcomes/Goals 1. PO intake to continue to meet >75% of nutritional needs . 2. Monitor PO intake, wt, nutrition related labs, and skin integrity. 3. F/U as low risk in 7-10 days, 01/20-01/23
[2019-01-18] MEDS: Enoxaparin 40 mg/0.4 mL 0.4mL Syr SUBQ SCH (09:10)
[2019-01-18] MEDS: Aspirin 81mg Chewable Tab PO SCH (09:11)
[2019-01-18] MEDS: NYSTATIN 100000 UNITS/GM POWD TP SCH ×2 (09:36→17:15)
--- NOTE | 2019-01-18 17:05 | Internal Medicine Prog Note ---
Internal Medicine Subjective - Subjective Service Date: 01/18/19 Patient seen and examined:: with staff (SHE HAS DIAPER RASH ON BOTH BUTTOKS) Patient is:: awake, verbal, in bed, talking, confused Per staff patient has:: no adverse event Internal Medicine Objective - Physical Exam Vitals and I&O: Vital Signs Temp 97.5 F 01/18/19 13:58 Pulse 103 01/18/19 13:58 Resp 16 01/18/19 13:58 BP 113/83 01/18/19 13:58 Pulse Ox 92 01/18/19 13:58 Intake & Output 01/17/19 01/18/19 01/18/19 18:59 06:59 18:59 Intake Total 1200 360 Output Total 1 Balance 1200 359 Intake: Oral 1200 360 Output: Urine/Stool Mix 1 Other: # Voids 1 # Bowel Movements 1 1 Active Medications: Current Medications Acetaminophen (Tylenol) 650 mg PO Q4HR PRN PRN Reason: Mild Pain / Temp above 100 Stop: 03/11/19 00:46 Amlodipine Besylate (Norvasc) 10 mg PO DAILY [facility] Stop: 03/11/19 08:59 Last Admin: 01/18/19 09:11 Dose: Not Given Aspirin (Aspirin Chewable) 81 mg PO DAILY [facility] Stop: 03/11/19 08:59 Last Admin: 01/18/19 09:11 Dose: 81 mg Clonazepam (Klonopin) 0.5 mg PO BID [facility]; Protocol Stop: 03/11/19 08:59 Last Admin: 01/18/19 09:10 Dose: 0.5 mg Diphenhydramine HCl (Benadryl) 25 mg PO Q6H PRN PRN Reason: itchy Stop: 03/11/19 02:22 Enoxaparin Sodium (Lovenox) 40 mg SUBQ DAILY [facility] Stop: 03/11/19 08:59 Last Admin: 01/18/19 09:10 Dose: 40 mg Fluconazole (Diflucan) 100 mg PO DAILY [facility] Stop: 01/23/19 08:59 Last Admin: 01/18/19 09:10 Dose: 100 mg Haloperidol (Haldol) 5 mg PO HS [facility]; Protocol Last Admin: 01/17/19 21:22 Dose: 5 mg Haloperidol (Haldol) 5 mg PO Q6H PRN; Protocol PRN Reason: Agitation Stop: 03/11/19 01:15 Haloperidol (Haldol) 2 mg PO BID [facility]; Protocol Stop: 03/15/19 08:59 Last Admin: 01/18/19 09:11 Dose: 2 mg Lorazepam (Ativan) 0.5 mg PO Q6HR PRN; Protocol PRN Reason: Agitation Stop: 02/09/19 00:46 Magnesium Hydroxide (Milk Of Magnesia) 30 ml PO HS PRN PRN Reason: Constipation Nystatin (Nystop) 0 units TP BID [facility] Stop: 03/19/19 08:59 Quetiapine Fumarate (Seroquel) 50 mg PO HS [facility]; Protocol Stop: 03/15/19 20:59 Last Admin: 01/17/19 21:23 Dose: 50 mg Trazodone HCl (Desyrel) 50 mg PO HS [facility]; Protocol Stop: 03/11/19 20:59 Last Admin: 01/17/19 21:22 Dose: 50 mg General: demented HEENT: NC/AT, PERRLA, EOMI, anicteric sclerae, throat clear Neck: Supple, No JVD, No thyromegaly, +2 carotid pulse wo bruit, No LAD Lungs: CTAB Cardiovascular: Normal S1, Normal S2, without murmur Abdomen: non-tender, non-distended Extremities: clear, rash (ON BOTH BUTTOKS) Neurological: no change Internal Medicine Assmt/Plan - Assessment Assessment: 1.HTN 2.DJD. 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 4.DIAPER RASH OF BOTH BUTTOKS 5.PSYCHOSIS - Plan Plan: CONTINUE ON CURRENT MEDICATION AND DIET Nutritional Asmnt/Malnutr-PDOC - Dietary Evaluation Malnutrition Findings (Please click <Entered> for more info): Nutritional Asmnt/Malnutrition Start: 01/13/19 13: 09 Text: Status: Complete Freq: Protocol: Document 01/13/19 13:09 BRENDAN (Rec: 01/13/19 13:12 BRENDAN [email or web address]) Nutritional Asmnt/Malnutrition Patient General Information Nutritional Screening Moderate Risk Diagnosis Psychosis Pertinent Medical Hx/Surgical Hx HTN, Dementia, Arthritis Subjective Information Pt is a 78-year-old female admitted on 01/09 d/t behavioral disturbance following a Dx UTI in [facility]. Pt refused Breakfast and Lunch and only ate 25% dinner day after admittance (01/10), Pt is eating 46% of meals x2 days Per Meal/Nutrition Activity Record. Dietary is currently providing an estimated 2900 kcals and 132 gm Pro, per Pt PO intake this is providing an estimated 1330 kcals and 60gm Pro to meet 80% kcal and 90% Pro needs- adequate. Spoke with Nurse Larry as he was concerned about pt poor PO intake. I let him know the pt is meeting estimated nutritional needs adequately, however if pt would like an Ensure between meals to ask for one from dietary. He stated pt doesnt seem to enjoy the Ensure, but he will offer if pt refuses snacks. Pt is very confused and unable to have a coherent conversation. Anthropometrics HT: 55 WT: 145 LB (65.91 kg) BMI: 24.18 (Normal) GI/ Skin Integrity GI: WNL, Soft, Flat, Non- tender BM: 01/12 x1 I/O: 960/1 (+959) Skin: WNL, fragile, Intact, Dryness Amandeep: 17 Current Diet Order/ Nutrition Support Ground Pertinent Medications MOM (PRN) Pertinent Labs 01/09: K 3.4, BUN/Cr 7/0.82, Glucose 114 Nutritional Hx/Data Height 1.65 m Height (Calculated Centimeters) 165.1 Current Weight (lbs) 65.771 kg Weight (Calculated Kilograms) 65.8 Weight (Calculated Grams) 83980.9 [place] Body Weight 120 LB (54.55 kg) % [place] Body Weight 121 Body Mass Index (BMI) 24.1 Weight Status Approriate GI Symptoms GI Symptoms None Last BM 01/12 x1 Skin Integrity/Comment: Skin: WNL, fragile, Intact, Dryness Amandeep: 17 Current %PO Poor (25-49%) Estimated Nutritional Goals BEE in Kcals: Using Current wt Calories/Kcals/Kg 25-30 Kcals Calculated 1752-0448 Protein: Using Current wt Protein g/k.0-1.2 Protein Calculated 66-80 Fluid: ml 6532-8504 ml (25-30 ml/kg) Nutritional Problem No current Nutrition Prob Problem No nutrition diagnosis at this time. Etiology N/A Signs/Symptoms: N/A Malnutrition Related to Morbid Obesity Malnutrition related to morbid obesity No Intervention/Recommendation Comments Continue Ground diet as tolerated. Expected Outcomes/Goals Expected Outcomes/Goals 1. PO intake to continue to meet >75% of nutritional needs . 2. Monitor PO intake, wt, nutrition related labs, and skin integrity. 3. F/U as low risk in 7-10 days, 01/20-01/23
--- NOTE | 2019-01-18 18:08 | Progress Notes ---
DATE: 01/17/2019 SUBJECTIVE: Chart reviewed and the patient interviewed. Also discussed the patient's condition with the staff and reviewed records and labs. The patient continued to be confused and is still anxious and agitated, but her agitation seems to be less than before. The patient also still needs redirections, but slightly easier to redirect her. Also, decreased outburst and also the patient is eating slightly more and the drinking a little bit more. Also, no side effects of medications. ASSESSMENT: The patient is still confused and psychotic. TREATMENT PLAN: Continue monitoring her behavior and continue working on behavioral modification and followup. JOB# [id number]
--- NOTE | 2019-01-18 18:49 | Progress Notes ---
DATE: 01/18/2019 SUBJECTIVE: Chart was reviewed and the patient interviewed. Also discussed the patient's condition with the staff and reviewed records and labs. The patient continued to be confused and anxious and agitated. The patient is still resisting care, especially during helping her with her ADLs. Otherwise, the patient is compliant with taking her medications with no side effects of medications. ASSESSMENT: The patient is still agitated and is still confused. TREATMENT PLAN: Continue monitoring her behavior and condition closely and continue current psychotropic medications and followup. [facility]# [id number]
[2019-01-19] MEDS: NYSTATIN 100000 UNITS/GM POWD TP SCH ×2 (08:42→16:30)
[2019-01-19] MEDS: Enoxaparin 40 mg/0.4 mL 0.4mL Syr SUBQ SCH (10:01)
[2019-01-19] MEDS: Aspirin 81mg Chewable Tab PO SCH (10:02)
--- NOTE | 2019-01-19 18:46 | Progress Notes ---
DATE: SUBJECTIVE: Chart was reviewed and the patient interviewed. Also discussed the patient's condition with the staff and reviewed records and labs. The patient is calm and cooperative. The patient also is still confused and still needs lots of redirections with difficulty following any of the staff directions. She seems to be slightly sedated. Otherwise, the patient is cooperative with her treatment and compliant with taking her medications. ASSESSMENT: The patient is still confused and needs redirections. TREATMENT PLAN: Continue to monitor behavior and condition closely. Also, continue adjusting psychotropic medications and working on behavioral modification. JOB# [id number]
[2019-01-19] MEDS: Amoxicillin/Clavulanat 875/125 Tab PO SCH (19:03)
--- NOTE | 2019-01-19 19:35 | Internal Medicine Prog Note ---
Internal Medicine Subjective - Subjective Service Date: 01/19/19 Patient seen and examined:: with staff (SHE HAS URINARY RETENSION AND UTI), without staff Patient is:: awake, verbal, in bed, talking, confused Per staff patient has:: no adverse event Internal Medicine Objective - Physical Exam Vitals and I&O: Vital Signs Temp 96.5 F 01/19/19 14:00 Pulse 100 01/19/19 14:00 Resp 20 01/19/19 14:00 BP 159/65 01/19/19 14:00 Pulse Ox 93 01/19/19 14:00 Intake & Output 01/19/19 01/19/19 01/20/19 06:59 18:59 06:59 Intake Total 60 240 Output Total 1600 Balance 60 -1360 Intake: Oral 60 240 Output: Urine 1600 Other: # Voids 3 1 # Bowel Movements 1 0 Active Medications: Current Medications Acetaminophen (Tylenol) 650 mg PO Q4HR PRN PRN Reason: Mild Pain / Temp above 100 Stop: 03/11/19 00:46 Amlodipine Besylate (Norvasc) 10 mg PO DAILY [facility] Stop: 03/11/19 08:59 Last Admin: 01/19/19 10:02 Dose: Not Given Amoxicillin/Clavulanate Potassium (Augmentin 875-125mg) 1 tab PO BID [facility] Stop: 01/26/19 09:01 Last Admin: 01/19/19 19:03 Dose: 1 tab Aspirin (Aspirin Chewable) 81 mg PO DAILY [facility] Stop: 03/11/19 08:59 Last Admin: 01/19/19 10:02 Dose: 81 mg Clonazepam (Klonopin) 0.5 mg PO BID [facility]; Protocol Stop: 03/11/19 08:59 Last Admin: 01/19/19 16:40 Dose: 0.5 mg Diphenhydramine HCl (Benadryl) 25 mg PO Q6H PRN PRN Reason: itchy Stop: 03/11/19 02:22 Enoxaparin Sodium (Lovenox) 40 mg SUBQ DAILY [facility] Stop: 03/11/19 08:59 Last Admin: 01/19/19 10:01 Dose: 40 mg Fluconazole (Diflucan) 100 mg PO DAILY [facility] Stop: 01/23/19 08:59 Last Admin: 01/19/19 10:02 Dose: 100 mg Haloperidol (Haldol) 5 mg PO HS [facility]; Protocol Last Admin: 01/18/19 21:28 Dose: 5 mg Haloperidol (Haldol) 5 mg PO Q6H PRN; Protocol PRN Reason: Agitation Stop: 03/11/19 01:15 Haloperidol (Haldol) 2 mg PO BID [facility]; Protocol Stop: 03/15/19 08:59 Last Admin: 01/19/19 16:40 Dose: 2 mg Lorazepam (Ativan) 0.5 mg PO Q6HR PRN; Protocol PRN Reason: Agitation Stop: 02/09/19 00:46 Magnesium Hydroxide (Milk Of Magnesia) 30 ml PO HS PRN PRN Reason: Constipation Megestrol Acetate (Megace) 400 mg PO BID [facility]; Protocol Stop: 03/21/19 08:59 Nystatin (Nystop) 0 units TP BID [facility] Stop: 03/19/19 08:59 Last Admin: 01/19/19 16:30 Dose: 100,000 units Phenazopyridine HCl (Pyridium) 100 mg PO BID [facility] Stop: 01/30/19 08:59 Quetiapine Fumarate (Seroquel) 50 mg PO HS [facility]; Protocol Stop: 03/15/19 20:59 Last Admin: 01/18/19 21:28 Dose: 50 mg Trazodone HCl (Desyrel) 50 mg PO HS [facility]; Protocol Stop: 03/11/19 20:59 Last Admin: 01/18/19 21:29 Dose: 50 mg General: demented HEENT: NC/AT, PERRLA, EOMI, anicteric sclerae, throat clear Neck: Supple, No JVD, No thyromegaly, +2 carotid pulse wo bruit, No LAD Lungs: CTAB Cardiovascular: Normal S1, Normal S2, without murmur Abdomen: non-tender, non-distended Extremities: clear, rash (ON BOTH BUTTOKS) Neurological: no change Internal Medicine Assmt/Plan - Assessment Assessment: 1.HTN 2.DJD. 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 4.DIAPER RASH OF BOTH BUTTOKS 5.PSYCHOSIS 6.UTI WITH URINARY RETENTION. - Plan Plan: CONTINUE ON CURRENT MEDICATION AND DIETAUGMENTIN 875 MG PO BID AND PYRIDIUM 100 MG PO BID.INTERMITENT CATH EVERY 8 H.CBC AND CMP IN AM. Nutritional Asmnt/Malnutr-PDOC - Dietary Evaluation Malnutrition Findings (Please click <Entered> for more info): Nutritional Asmnt/Malnutrition Start: 01/13/19 13: 09 Text: Status: Complete Freq: Protocol: Document 01/13/19 13:09 BRENDAN (Rec: 01/13/19 13:12 BRENDAN [email or web address]) Nutritional Asmnt/Malnutrition Patient General Information Nutritional Screening Moderate Risk Diagnosis Psychosis Pertinent Medical Hx/Surgical Hx HTN, Dementia, Arthritis Subjective Information Pt is a 78-year-old female admitted on 01/09 d/t behavioral disturbance following a Dx UTI in [facility]. Pt refused Breakfast and Lunch and only ate 25% dinner day after admittance (01/10), Pt is eating 46% of meals x2 days Per Meal/Nutrition Activity Record. Dietary is currently providing an estimated 2900 kcals and 132 gm Pro, per Pt PO intake this is providing an estimated 1330 kcals and 60gm Pro to meet 80% kcal and 90% Pro needs- adequate. Spoke with Nurse Larry as he was concerned about pt poor PO intake. I let him know the pt is meeting estimated nutritional needs adequately, however if pt would like an Ensure between meals to ask for one from dietary. He stated pt doesnt seem to enjoy the Ensure, but he will offer if pt refuses snacks. Pt is very confused and unable to have a coherent conversation. Anthropometrics HT: 55 WT: 145 LB (65.91 kg) BMI: 24.18 (Normal) GI/ Skin Integrity GI: WNL, Soft, Flat, Non- tender BM: 01/12 x1 I/O: 960/1 (+959) Skin: WNL, fragile, Intact, Dryness Amandeep: 17 Current Diet Order/ Nutrition Support Ground Pertinent Medications MOM (PRN) Pertinent Labs 01/09: K 3.4, BUN/Cr 7/0.82, Glucose 114 Nutritional Hx/Data Height 1.65 m Height (Calculated Centimeters) 165.1 Current Weight (lbs) 65.771 kg Weight (Calculated Kilograms) 65.8 Weight (Calculated Grams) 58195.9 [place] Body Weight 120 LB (54.55 kg) % [place] Body Weight 121 Body Mass Index (BMI) 24.1 Weight Status Approriate GI Symptoms GI Symptoms None Last BM 01/12 x1 Skin Integrity/Comment: Skin: WNL, fragile, Intact, Dryness Amandeep: 17 Current %PO Poor (25-49%) Estimated Nutritional Goals BEE in Kcals: Using Current wt Calories/Kcals/Kg 25-30 Kcals Calculated 3132-1008 Protein: Using Current wt Protein g/k.0-1.2 Protein Calculated 66-80 Fluid: ml 2970-3018 ml (25-30 ml/kg) Nutritional Problem No current Nutrition Prob Problem No nutrition diagnosis at this time. Etiology N/A Signs/Symptoms: N/A Malnutrition Related to Morbid Obesity Malnutrition related to morbid obesity No Intervention/Recommendation Comments Continue Ground diet as tolerated. Expected Outcomes/Goals Expected Outcomes/Goals 1. PO intake to continue to meet >75% of nutritional needs . 2. Monitor PO intake, wt, nutrition related labs, and skin integrity. 3. F/U as low risk in 7-10 days, 01/20-01/23
[2019-01-20] MEDS ORDERED: Amoxicillin/Clavulanat 875/125 Tab PO SCH (09:00)
[2019-01-20] MEDS: Enoxaparin 40 mg/0.4 mL 0.4mL Syr SUBQ SCH (09:37)
[2019-01-20] MEDS: Amoxicillin/Clavulanat 875/125 Tab PO SCH ×2 (09:37→16:40)
[2019-01-20] MEDS: Aspirin 81mg Chewable Tab PO SCH (09:39)
[2019-01-20] MEDS: NYSTATIN 100000 UNITS/GM POWD TP SCH ×2 (09:39→16:40)
--- NOTE | 2019-01-20 20:32 | Internal Medicine Prog Note ---
Internal Medicine Subjective - Subjective Service Date: 01/20/19 Patient seen and examined:: with staff, without staff (SHE IS NOT EATING AND HAS BEEN VERY WEAK.) Patient is:: verbal, arousable, in bed, talking, confused Per staff patient has:: no adverse event, poor appetite Internal Medicine Objective - Physical Exam Vitals and I&O: Vital Signs Temp 98.0 F 01/20/19 20:20 Pulse 100 01/20/19 20:20 Resp 20 01/20/19 20:20 BP 133/54 01/20/19 20:20 Pulse Ox 92 01/20/19 20:20 Intake & Output 01/20/19 01/20/19 01/21/19 06:59 18:59 06:59 Intake Total 300 120 240 Output Total 1850 Balance 300 -1730 240 Intake: Oral 300 120 240 Output: Urine 1850 Other: # Voids 1 2 # Bowel Movements 0 Active Medications: Current Medications Acetaminophen (Tylenol) 650 mg PO Q4HR PRN PRN Reason: Mild Pain (Scale 1-3) Stop: 03/11/19 00:46 Acetaminophen (Tylenol) 650 mg PO Q4H PRN PRN Reason: TEMP ABOVE 100 Stop: 03/21/19 14:51 Amlodipine Besylate (Norvasc) 10 mg PO DAILY [facility] Stop: 03/11/19 08:59 Last Admin: 01/20/19 09:38 Dose: 10 mg Amoxicillin/Clavulanate Potassium (Augmentin 875-125mg) 1 tab PO BID [facility] Stop: 01/26/19 09:01 Last Admin: 01/20/19 16:40 Dose: 1 tab Aspirin (Aspirin Chewable) 81 mg PO DAILY [facility] Stop: 03/11/19 08:59 Last Admin: 01/20/19 09:39 Dose: 81 mg Clonazepam (Klonopin) 0.5 mg PO BID [facility]; Protocol Stop: 03/11/19 08:59 Last Admin: 01/20/19 16:40 Dose: 0.5 mg Diphenhydramine HCl (Benadryl) 25 mg PO Q6H PRN PRN Reason: itchy Stop: 03/11/19 02:22 Enoxaparin Sodium (Lovenox) 40 mg SUBQ DAILY [facility] Stop: 03/11/19 08:59 Last Admin: 01/20/19 09:37 Dose: 40 mg Fluconazole (Diflucan) 100 mg PO DAILY [facility] Stop: 01/23/19 08:59 Last Admin: 01/20/19 09:37 Dose: 100 mg Haloperidol (Haldol) 5 mg PO HS [facility]; Protocol Last Admin: 01/19/19 21:30 Dose: 5 mg Haloperidol (Haldol) 5 mg PO Q6H PRN; Protocol PRN Reason: Agitation Stop: 03/11/19 01:15 Lorazepam (Ativan) 0.5 mg PO Q6HR PRN; Protocol PRN Reason: Agitation Stop: 02/09/19 00:46 Magnesium Hydroxide (Milk Of Magnesia) 30 ml PO HS PRN PRN Reason: Constipation Megestrol Acetate (Megace) 400 mg PO BID [facility]; Protocol Stop: 03/21/19 08:59 Last Admin: 01/20/19 16:40 Dose: 400 mg Nystatin (Nystop) 0 units TP BID [facility] Stop: 03/19/19 08:59 Last Admin: 01/20/19 16:40 Dose: 1 units Phenazopyridine HCl (Pyridium) 100 mg PO BID [facility] Stop: 01/30/19 08:59 Last Admin: 01/20/19 16:40 Dose: 100 mg Quetiapine Fumarate (Seroquel) 50 mg PO HS [facility]; Protocol Stop: 03/15/19 20:59 Last Admin: 01/19/19 21:30 Dose: 50 mg Quetiapine Fumarate (Seroquel) 12.5 mg PO DAILY [facility]; Protocol Stop: 03/21/19 08:59 Last Admin: 01/20/19 09:38 Dose: 12.5 mg Trazodone HCl (Desyrel) 50 mg PO HS [facility]; Protocol Stop: 03/11/19 20:59 Last Admin: 01/19/19 21:31 Dose: 50 mg General: weak, demented HEENT: NC/AT, PERRLA, EOMI, anicteric sclerae, throat clear Neck: Supple, No JVD, No thyromegaly, +2 carotid pulse wo bruit, No LAD Lungs: CTAB Cardiovascular: Normal S1, Normal S2, without murmur Abdomen: non-tender, non-distended Extremities: clear, rash (ON BOTH BUTTOKS) Neurological: no change Internal Medicine Assmt/Plan - Assessment Assessment: 1.HTN 2.DJD. 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 4.DIAPER RASH OF BOTH BUTTOKS 5.PSYCHOSIS 6.UTI WITH URINARY RETENTION. - Plan Plan: TRANSFER TO [facility] FORMORE EVALUATION AND TREATMENT Nutritional Asmnt/Malnutr-PDOC - Dietary Evaluation Malnutrition Findings (Please click <Entered> for more info): Nutritional Asmnt/Malnutrition Start: 01/13/19 13: 09 Text: Status: Complete Freq: Protocol: Document 01/13/19 13:09 [email or web address] (Rec: 01/13/19 13:12 [email or web address]) Nutritional Asmnt/Malnutrition Patient General Information Nutritional Screening Moderate Risk Diagnosis Psychosis Pertinent Medical Hx/Surgical Hx HTN, Dementia, Arthritis Subjective Information Pt is a 78-year-old female admitted on 01/09 d/t behavioral disturbance following a Dx UTI in [facility]. Pt refused Breakfast and Lunch and only ate 25% dinner day after admittance (01/10), Pt is eating 46% of meals x2 days Per Meal/Nutrition Activity Record. Dietary is currently providing an estimated 2900 kcals and 132 gm Pro, per Pt PO intake this is providing an estimated 1330 kcals and 60gm Pro to meet 80% kcal and 90% Pro needs- adequate. Spoke with Nurse Larry as he was concerned about pt poor PO intake. I let him know the pt is meeting estimated nutritional needs adequately, however if pt would like an Ensure between meals to ask for one from dietary. He stated pt doesnt seem to enjoy the Ensure, but he will offer if pt refuses snacks. Pt is very confused and unable to have a coherent conversation. Anthropometrics HT: 55 WT: 145 LB (65.91 kg) BMI: 24.18 (Normal) GI/ Skin Integrity GI: WNL, Soft, Flat, Non- tender BM: 01/12 x1 I/O: 960/1 (+959) Skin: WNL, fragile, Intact, Dryness Amandeep: 17 Current Diet Order/ Nutrition Support Ground Pertinent Medications MOM (PRN) Pertinent Labs 01/09: K 3.4, BUN/Cr 7/0.82, Glucose 114 Nutritional Hx/Data Height 1.65 m Height (Calculated Centimeters) 165.1 Current Weight (lbs) 65.771 kg Weight (Calculated Kilograms) 65.8 Weight (Calculated Grams) 23925.9 [place] Body Weight 120 LB (54.55 kg) % [place] Body Weight 121 Body Mass Index (BMI) 24.1 Weight Status Approriate GI Symptoms GI Symptoms None Last BM 01/12 x1 Skin Integrity/Comment: Skin: WNL, fragile, Intact, Dryness Amandeep: 17 Current %PO Poor (25-49%) Estimated Nutritional Goals BEE in Kcals: Using Current wt Calories/Kcals/Kg 25-30 Kcals Calculated 0462-4653 Protein: Using Current wt Protein g/k.0-1.2 Protein Calculated 66-80 Fluid: ml 5447-1258 ml (25-30 ml/kg) Nutritional Problem No current Nutrition Prob Problem No nutrition diagnosis at this time. Etiology N/A Signs/Symptoms: N/A Malnutrition Related to Morbid Obesity Malnutrition related to morbid obesity No Intervention/Recommendation Comments Continue Ground diet as tolerated. Expected Outcomes/Goals Expected Outcomes/Goals 1. PO intake to continue to meet >75% of nutritional needs . 2. Monitor PO intake, wt, nutrition related labs, and skin integrity. 3. F/U as low risk in 7-10 days, 01/20-01/23
--- NOTE | 2019-01-21 09:46 | Progress Notes ---
DATE: 01/20/2019 SUBJECTIVE: Chart was reviewed and the patient interviewed. Also discussed the patient's condition with the staff and reviewed records and labs. The patient seems to be slightly sedated. The patient also is still having episodes of agitation when awake and she is still angry and in irritable mood at times. She also is still unable to provide any safe plan for self-care. TREATMENT PLAN: Because of the patient's condition, we will try to switch. We will discontinue Haldol completely and we will give Seroquel in a dose of 12.5 mg in the morning and 50 mg at bedtime. Also, continue adjusting her medications and monitor possibilities of her being sedated and continue to follow up. [facility]# [id number]
== END 2019-01-20 22:20 | disposition short-term general hospital (02) | DRG 885 ==
LOC: GERO 22:12
PROVIDERS: ADMIT Psychiatry & Neurology Psychiatry; ATTEND Psychiatry & Neurology Psychiatry
DX: F29 Unspecified psychosis not due to a substance or known physiological condition (principal); N39.0 Urinary tract infection, site not specified; F03.90 Unspecified dementia, unspecified severity, without behavioral disturbance, psychotic disturbance, mood disturbance, and anxiety; I10 Essential (primary) hypertension; M19.90 Unspecified osteoarthritis, unspecified site; L22 Diaper dermatitis; R33.9 Retention of urine, unspecified
CPT/HCPCS: 83036-90; 87086-90; J1650; Z7610